=== PATIENT | male | born 1970 | race Caucasian/White ===

== ENCOUNTER 2021-01-20 17:21 | Emergency (ER) | payer OTHER, SELFPAY ==
--- NOTE | ~2021-01-20 | CT_ITS ---
EXAMINATION:CT diagnostic chest wo con DATE: 01/20/2021 18:36 INDICATION: Cough. Fever. COVID-19 pneumonia. TECHNIQUE: Computed tomography (CT) of the chest was performed without intravenous contrast. Automate d exposure control and iterative reconstruction technique were employed. The dose-length product (DLP ) was 724.26 mGy-cm. COMPARISON: None. FINDINGS: There are patchy groundglass and airspace opacities in the lower lobes, consistent with pne umonia. There is mild atelectasis in right middle lobe. A calcified left lung nodule and calcified le ft hilar lymph nodes are consistent with old granulomatous disease. No pleural effusion. The heart si ze is normal. There are coronary artery calcifications. No pericardial effusion. There is diffuse hep atic steatosis. There are 4 stones in left kidney measuring up to 2 mm. There is mild thoracic spondy losis. IMPRESSION: 1. Bilateral lower lobe pneumonia. Reviewed, dictated and finalized at location A.
[2021-01-20 17:28] VITALS: BP 174/116; PULSE 111; RESP 19; TEMP 37.1; O2SAT 95
--- NOTE | 2021-01-20 18:00 | ECG_ITS ---
Measurements Intervals [place] Rate: 112 P: 14 ID: [id number] QRS: -6 QRSD: 90 T: 170 QT: 333 QTc: 455 Interpretive Statements SINUS TACHYCARDIA LEFT VENTRICULAR HYPERTROPHY AND ST-T CHANGE ST-T WAVE ABNORMALITY IN ANTEROLAT/HIGH LAT LEADS- CONSIDER ISCHEMIA BASELINE ARTIFACT- II, III, AVF, V3 ABNORMAL ECG Electronically Signed On 01-23-2021 8:15:48 CDT by Nando Hughes D.O.
--- NOTE | 2021-01-20 18:15 | ED.URI ---
HPI - URI/Sore Throat General Chief Complaint: Upper Respiratory Infection Stated Complaint: low grade fever, congestion Time Seen by Provider: 01/20/21 17:23 Source: patient and RN notes reviewed Mode of arrival: ambulatory Limitations: no limitations History of Present Illness MD elicited complaint: fever, nasal congestion and other (chest congestion and occasional wheezes.) Onset (ago): day(s) (3) Consistency: constant Severity: moderate Pain scale (0-10): 0 Able to tolerate fluids by mouth: Yes Associated symptoms: nasal congestion and shortness of breath Related Data Home Medications Medication Instructions Recorded Confirmed amlodipine 10 mg PO DAILY 01/20/21 01/20/21 lisinopril 10 mg PO HS 01/20/21 01/20/21 metoprolol tartrate 50 mg PO Q12H 01/20/21 01/20/21 Allergies Allergy/AdvReac Type Severity Reaction Status Date / Time No Known Allergies Allergy Verified 01/20/21 17:44 Review of Systems Review of Systems: All systems reviewed & are unremarkable except as noted in HPI and below Respiratory: Respiratory: Reports cough, Reports dyspnea and Reports wheezing Gastrointestinal: Gastrointestinal: Reports no additional gastrointestinal complaints PMFSH Past Medical History Medical History (Updated 01/20/21 @ 19:47 by Roxy Patino MD) Chest congestion Exam Const: General: no acute distress Nutritional Appearance: well nourished Orientation/consciousness: patient oriented x3 HENMT: Head: normal to inspection Ears: TM's normal bilaterally General nose exam: Normal external nose present and Normal nares present Mouth: Yes lip normal and Yes moist mucous membranes Teeth and gingiva: dentition normal Eyes: Conjunctivae: conjunctivae normal Pupils: Equal, round and reactive pupils present EOM: EOMs intact bilaterally Neck: Neck: normal visual inspection and no lymphadenopathy Resp: Effort & Inspection: normal respiratory effort and uses accessory muscles Auscultation: rhonchi Cardio: Rate: tachycardic GI: GI Palp: Yes Soft to palpation Percussion: Yes normal to percussion Auscultation: normal bowel sounds : General: Yes no CVA tenderness Back/Spine/Pelvis: Back: no CVA tenderness Skin: General skin exam: normal color Rashes: no rashes Neuro: General: patient oriented x3, moves all extremities, no meningeal signs, no focal motor deficits and CN's II-XI intact bilaterally Extrem: General: no pedal edema Psych: Appearance: grossly normal and well kempt Mental Status: mental status grossly normal Affect: normal affect Thought content: Yes Normal thought content present Course Course Emergency Course: pt was mildly dyspneic in the ED. Pt wanted to go home and will return if his sxs worsens. Reevaluation(s) Reevaluation #1: pt was stable and responding well to tx. Date: 01/20/21 Time: 18:30 Vital Signs Vital signs: Vital Signs Temperature 37.1 C 01/20/21 17:28 Pulse Rate 111 H 01/20/21 17:28 Respiratory Rate 19 01/20/21 17:28 Blood Pressure 174/116 H 01/20/21 17:28 Pulse Oximetry 95 01/20/21 17:28 Temperature 37.1 C 01/20/21 17:28 Pulse Rate 101 H 01/20/21 19:35 Respiratory Rate 19 01/20/21 17:28 Blood Pressure 174/116 H 01/20/21 17:28 Pulse Oximetry 95 01/20/21 17:28 MDM - URI/Sore Throat Differential Diagnosis Differential diagnosis: Likely upper respiratory infection, viral infection and bronchitis Medical Records Attestation: I reviewed the patient's medical records. Lab Data Attestation: I reviewed the patient's lab results. Result diagrams: 01/20/21 18:07 01/20/21 18:07 Labs: Lab Results 01/20/21 01/20/21 01/20/21 Range/Units 17:39 18:07 18:07 WBC 7.6 (4.8-10.8) K/mm3 RBC 5.76 (4.70-6.10) M/mm3 Hgb 16.4 (14.0-18.0) g/dL Hct 51.0 (40.0-54.0) % MCV 88.5 (78.0-102.0) fL MCH 28.5 (27.0-31.0) pg MCHC 32.2 (32.0-36.0) g/dL RDW 14.6 H (11.6-14.4) % P
[2021-01-20 18:27] LABS: Influenza A QL RT-PCR Negative (Negative); Influenza B QL RT-PCR Negative (Negative); SARS-CoV-2 RNA PCR Positive (Negative)
[2021-01-20 18:46] VITALS: PULSE 111
[2021-01-20] MEDS: METOPROLOL TARTRATE INJ 5 MG/5 ML VIAL IV PUSH ×2 (18:46→19:35)
[2021-01-20] MEDS: SODIUM CHLORIDE 0.9% IV 500 ML 999 ML IV CONT (18:46)
[2021-01-20] MEDS: methylPREDNISolone SOD SUCC 125 MG VIAL IV PUSH (18:47)
[2021-01-20] MEDS: ALBUTEROL SULFATE (*SP) INHALER 2 PUFF INHALATION (18:47)
[2021-01-20 18:49] LABS: Base Excess ABG 0.5 mmol/L (0-2); HCO3 ABG 23.9 mmol/L (23-29); Oxygen Saturation ABG 93.5 % (95-97); Oxyhemoglobin 92.3 % (94-100); PCO2 ABG 35.2 mmHg (35-45); PO2 ABG 66.4 mmHg (80-90); Total Hemoglobin 16.2 g/dL (12.0-18.0); pH ABG 7.45 (7.35-7.45)
[2021-01-20 18:51] LABS: Device ROOM AIR; Modified Allen's Test Pass; Site Drawn LEFT RADIAL
[2021-01-20 18:52] LABS: Basophils Absolute Auto 0.02 K/mm3 (0.00-0.10); Basophils Percent Auto 0.3 % (0.0-1.0); Eosinophils Absolute Auto 0.07 K/mm3 (0.02-0.50); Eosinophils Percent Auto 0.9 % (1.0-6.0); Hemoglobin 16.4 g/dL (14.0-18.0); Immature Granulocyte Absolute 0.03 K/mm3 (0.00-0.00); Immature Granulocyte Percent A 0.4 % (0.0-0.0); Lymphocytes Absolute Auto 1.42 K/mm3 (1.10-4.50); Lymphocytes Percent Auto 18.7 % (18.0-42.0); Mean Corpuscular HGB Conc 32.2 g/dL (32.0-36.0); Mean Corpuscular Hemoglobin 28.5 pg (27.0-31.0); Mean Corpuscular Volume 88.5 fL (78.0-102.0); Mean Platelet Volume 10.3 fl (8.7-11.0); Monocytes Percent Auto 10.6 % (2.0-11.0); Neutrophils Absolute Auto 5.2 K/mm3 (1.7-7.2); Neutrophils Percent Auto 69.1 % (50.0-70.0); Platelet Count Result 226 K/mm3 (150-420); Red Blood Count 5.76 M/mm3 (4.70-6.10); Red Cell Distribution Width 14.6 % (11.6-14.4); White Blood Count 7.6 K/mm3 (4.8-10.8)
--- NOTE | 2021-01-20 18:56 | PC.NURSE ---
REPORT PROVIDED TO JAVIER ADDISON
[2021-01-20 19:00] VITALS: BP 174/119; PULSE 100
[2021-01-20 19:14] LABS: Alanine Aminotransferase 87 U/L (16-63); Albumin Level 3.9 g/dL (3.4-5.0); Alkaline Phosphatase 63 U/L (46-116); Anion Gap 9 mmol/L (8-16); Aspartate Amino Transferase 61 U/L (15-37); Bilirubin,Total 0.4 mg/dL (0.00-1.00); Blood Urea Nitrogen 14 mg/dL (7-18); Carbon Dioxide 31 mmol/L (21-32); Chloride 100 mmol/L (98-108); Estimated CRCL calculation 75 ml/min; Estimated Glomerular Filt Rate 57; Glucose 94 mg/dL (70-99); NT Pro B Type Natriuretic Pept 581 pg/mL (0-125); Osmolality Calculated 290 mOsm/kg (285-295); Sodium 140 mmol/L (136-145); Total Protein 8.5 g/dL (6.4-8.2)
[2021-01-20] MEDS: ACETAMINOPHEN 325 MG TABLET 650 MG PO (19:18)
[2021-01-20 19:25] LABS: Potassium 4.2 mmol/L (3.5-5.1)
[2021-01-20 19:35] VITALS: PULSE 101
[2021-01-20] MEDS: AZITHROMYCIN 250 MG TABLET 500 MG PO (19:40)
[2021-01-20 19:52] VITALS: BP 152/105; PULSE 99
[2021-01-20 20:10] VITALS: BP 157/107; PULSE 97; RESP 20; O2SAT 96
== END 2021-01-20 20:19 | disposition home or self-care (01) ==
PROVIDERS: Emergency Provider Emergency Medicine
DX: U07.1 COVID-19 (principal); J12.82 Pneumonia due to coronavirus disease 2019; R06.00 Dyspnea, unspecified
CPT/HCPCS: 36415; 36600; 71250; 80053; 82805; 83880; 85025; 87040; 87502; 93005; 96374; 96375; 96376; 99283; 99284; A9270; C9803; J0696; J2930; J7040; U0003; U0005

== ENCOUNTER 2021-02-14 13:35 | Emergency (ER) | payer OTHER, SELFPAY ==
--- NOTE | ~2021-02-14 | XR_ITS ---
EXAMINATION: XR elbow RT min 3V EXAM DATE: 02/14/2021 13:57 INDICATION: rt posterior elbow pain today etiology unknown. TECHNIQUE: Right elbow frontal, lateral with flexion, and oblique projections obtained and reviewed. There is no prior study for comparison. FINDINGS: Right elbow anterior humeral line intact. There are no acute fractures or dislocations wilma ntified. There is no subcutaneous gas. There is large amount of right elbow joint fluid. This is mo st commonly sterile effusion. Possible underlying etiologies include reactive from arthritis, overuse , or trauma. Hemarthrosis and septic effusion are not radiographically excludable. Please clinicall y correlate. There is also subcutaneous edema identified along the posterior aspect of the elbow. Th ere are small well-corticated ossifications, sequela from prior injuries. There are no radiopaque fo reign bodies. IMPRESSION: 1. Right elbow exam without acute osseous findings. 2. Large amount of joint fluid. Clinical correlation. Reviewed, dictated and finalized at location A.
[2021-02-14 13:43] VITALS: BP 229/134; PULSE 105; RESP 16; TEMP 36.3; O2SAT 97
[2021-02-14] MEDS: cloNIDine HCL 0.1 MG TABLET PO (13:56)
[2021-02-14] MEDS: ACETAMINOPHEN 500 MG TABLET 1000 MG PO (14:04)
--- NOTE | 2021-02-14 14:29 | ED.EXTPRO ---
HPI - Extremity Problem General Chief complaint: Extremity Problem,Nontraumatic Stated complaint: right elbow pain Time Seen by Provider: 02/14/21 14:12 Source: patient and RN notes reviewed Limitations: no limitations History of Present Illness HPI Narrative: The patient, who is right-handed truck mechanic, presents with right elbow pain. Patient states he has shorter 1 day history of right elbow swelling without redness; symptoms are mild, worse with activity, worse olecranon. No direct injury, redness, fever, warmth, discharge; and he has skin eruption mostly on the opposite forearm consistent with contact dermatitis. Vital signs remarkable for afebrile with high stage elevated BP; he'snot take his medicines over the weekend he reports. Related Data Home Medications Medication Instructions Recorded Confirmed lisinopril 10 mg PO HS 01/20/21 02/14/21 metoprolol tartrate 50 mg PO Q12H 01/20/21 02/14/21 Allergies Allergy/AdvReac Type Severity Reaction Status Date / Time No Known Allergies Allergy Verified 02/14/21 13:37 Review of Systems Review of Systems: General/Constitutional: No weight loss,fever Eyes: N0: Redness,discharge Ears/Nose/Throat: No: Epistaxis,ear discharge Respiratory: Denies: Hemoptysis Gastrointestinal: No Vomiting, Bleeding-rectal Skin: No Lumps, eruption Neurologic: No Focal Weakness,Sz Hematologic: Denies: Petechiae/Purpura Psychiatric: No: Suicida ideationl All Other Systems: Reviewed and Negative [facility] Past Medical History Medical History (Updated 02/14/21 @ 14:36 by Damian Boone MD) Chest congestion Comments At time of signature, agree with nursing past medical, surgical, social and family history. There is no relevant family history pertinent to the presenting complaint Exam Narrative: General Appearance: Well appearing, Conjunctiva clear Ears: External ear normal, Auditory canal normal Nose: Normal nose, Nares clear Mouth/Throat: Normal appearing, Normal lips Neck: Supple Respiratory: Airway patent, No respiratory distress MS-elbow: Nl strength (mostly intact, limited flexion/extension by pain), Tenderness (olecranon, with mild decreased ROM), Swelling (mild, diffuse), Other (no anterior drawer, no collateral laxity, no pain on axial joint compression, no warmth Skin: Warm, Dry, Normal color, with well-healing contact dermatitis left>> right forearm Neurological: A&O x3, Normal affect Course Vital Signs Vital signs: Vital Signs Temperature 97.3 F L 02/14/21 13:43 Pulse Rate 105 H 02/14/21 13:43 Respiratory Rate 16 02/14/21 13:43 Blood Pressure 229/134 H 02/14/21 13:43 Pulse Oximetry 97 02/14/21 13:43 Temperature 97.3 F L 02/14/21 13:43 Pulse Rate 105 H 02/14/21 13:43 Respiratory Rate 16 02/14/21 13:43 Blood Pressure 184/112 H 02/14/21 14:45 Pulse Oximetry 97 02/14/21 13:43 Discharge Plan Discharge Clinical Impression: Olecranon bursitis, right elbow Patient Disposition: Home, Self-Care Condition: Stable Instructions: Antibiotic Form Additional Instructions: Do not take prescription pain meds the same time, nor operate machinery/ drive See PMD follow-up especially if no improvement; ensure you take your blood pressure medications Prescriptions: New acetaminophen-codeine 300-30 mg tablet 1 - 1.5 tablet PO HS PRN (Reason: pain) Qty: 14 RF: 0 prednisone 20 mg tablet 80 mg PO DAILY Qty: 12 RF: 0 tramadol 50 mg tablet 50 - 75 mg PO BID PRN (Reason: pain) Qty: 30 RF: 0 No Action lisinopril 10 mg Tablet 10 mg PO HS RF: 0 metoprolol tartrate 50 mg Tablet 50 mg PO Q12H RF: 0 albuterol sulfate 90 mcg/actuation HFA aerosol inhaler 2 puff inhalation Q4H Qty: 8.5 RF: 0 omeprazole magnesium [Prilosec OTC] 20 mg tablet,delayed release (DR/EC) 20 mg PO BID Qty: 20 RF: 0 amlodipine 10 mg tablet 10 mg PO DAILY Qty: 30 RF: 0 Follow-up/Referrals: UNKNOWN,DOCTO
[2021-02-14 14:30] VITALS: BP 179/124
[2021-02-14 14:45] VITALS: BP 184/112
== END 2021-02-14 14:47 | disposition home or self-care (01) ==
PROVIDERS: Emergency Provider Emergency Medicine
DX: M70.21 Olecranon bursitis, right elbow (principal); I10 Essential (primary) hypertension; Z86.16 Personal history of COVID-19
CPT/HCPCS: 73080; 99213; A9270; G0463

== ENCOUNTER 2021-07-10 08:43 | Emergency (ER) | payer OTHER, SELFPAY ==
--- NOTE | ~2021-07-10 | CT_ITS ---
EXAMINATION: CT abdomen pelvis wo con DATE: 07/10/2021 09:48 INDICATION: Urolithiasis presenting with dysuria, hematuria and left flank pain. TECHNIQUE: Computed tomography (CT) of the abdomen and pelvis was performed without intravenous contr ast. Automated exposure control and iterative reconstruction technique were employed. The dose-length product was 743.10 mGy-cm. COMPARISON: None FINDINGS: Small calcified nodule in the left lower lobe consistent with old granulomatous disease. Heart size i s normal. Aortic valve calcific location. No pericardial or pleural effusion. Diffuse hepatic steatos is with focal sparing along the gallbladder fossa. Gallbladder, spleen, pancreas and bilateral adrena l glands are normal. Bilateral nephrolithiasis, the largest stones measuring 4 mm at a lower pole ag yx of the left kidney and 2 mm at a lower pole calyx of the right kidney. There is a 1-2 mm stone at the proximal left ureter with mild left hydronephrosis. No other ureteral stones. Bladder is normal. There is mild colonic diverticulosis with a sigmoid predominance. There is no adjacent inflammatory c hange to suggest diverticulitis. No bowel obstruction. Bilateral small fat-containing inguinal hernia s. No free intraperitoneal gas or fluid. No pathologically enlarged abdominal or pelvic lymphadenopat hy. Chronic appearing mild likely physiologic anterior wedging at T12. Mild bilateral hip osteoarthri tis. IMPRESSION: 1. Bilateral nephrolithiasis with 102 moderate proximal left ureteral stone with mild left hydronephr osis. Reviewed, dictated and finalized at location A. IMPRESSION: 1. Bilateral nephrolithiasis with 102 moderate proximal left ureteral stone wit h mild left hydronephrosis.
[2021-07-10 08:41] VITALS: BP 205/152; PULSE 112; RESP 20; TEMP 36.6; O2SAT 97
--- NOTE | 2021-07-10 08:51 | ECG_ITS ---
Measurements Intervals [place] Rate: 110 P: 76 [place]: 168 QRS: 11 QRSD: 93 T: 176 QT: 333 QTc: 451 Interpretive Statements SINUS TACHYCARDIA POSSIBLE LEFT ATRIAL ENLARGEMENT [-0.1mV P WAVE IN V1/V2] LEFT VENTRICULAR HYPERTROPHY AND ST-T CHANGE [VOLTAGE CRITERIA PLUS ST/T ABNORMALITY] CONSIDER MYOCARDIAL ISCHEMIA ABNORMAL ECG COMPARED TO ECG 01/20/2021 18:22:40 NO SIGNIFICANT CHANGES Electronically Signed On 07-10-2021 12:22:04 CDT by Felice Kaiser M.D.
[2021-07-10] MEDS: HYDROmorphone HCL INJ (*CRX) 1 MG/ML SYR IV PUSH ×2 (08:52→10:06)
[2021-07-10] MEDS: ONDANSETRON INJ 4 MG/2 ML VIAL IV PUSH (08:52)
--- NOTE | 2021-07-10 08:58 | ED.ABDPAIN ---
HPI - Abdominal Pain General Chief Complaint: Abdominal Pain Stated Complaint: Flank Pain Time Seen by Provider: 07/10/21 08:48 Source: patient History of Present Illness HPI narrative: 50-year-old male with significant history of nephrolithiasis presents to the emergency department for evaluation of acute onset of left lower back pain. Patient states when he woke up at 3 AM he noticed he did have some hematuria. Patient states at 7 AM he had onset of left lower back pain. Patient denies any chest pain or shortness of breath. Pain is localized to his left lower back. Patient does have history of hypertension and does take metoprolol and amlodipine in the morning. Patient did not take his medications this morning due to the pain. Upon arrival patient was hypertensive with a blood pressure 215/150. Related Data Home Medications Medication Instructions Recorded Confirmed lisinopril 10 mg PO HS 01/20/21 02/14/21 metoprolol tartrate 50 mg PO Q12H 01/20/21 02/14/21 Allergies Allergy/AdvReac Type Severity Reaction Status Date / Time No Known Allergies Allergy Verified 07/10/21 08:45 Review of Systems Review of Systems: CONSTITUTIONAL: Denies fever, chills, or sweats. EYES: Denies visual changes, redness, or discharge. ENT: Denies rhinorrhea, congestion, sore throat, or otalgia. CARDIOVASCULAR: Denies chest pain, palpitations, or edema. RESPIRATORY: Denies cough or dyspnea. GASTROINTESTINAL: Left flank pain and lower back pain GENITOURINARY: Hematuria SKIN: Denies rash or itching. MUSCULOSKELETAL: Denies back pain, joint pain, or myalgia. NEUROLOGIC: Denies headache, numbness, or weakness. [facility] Past Medical History Medical History (Updated 07/10/21 @ 11:07 by Troy Alvarez MD) Chest congestion Exam Narrative: APPEARANCE: Distress secondary to flank pain HEAD: normocephalic, atraumatic. EYES: PERRLA/EOMI, conjunctivae clear. NOSE: Normal no drainage NECK: Supple. No adenopathy, no masses. RESPIRATORY: Airway patent, respirations nonlabored. Clear to auscultation bilaterally, no rales, rhonchi, wheezing. CARDIOVASCULAR: Regular rate and rhythm without murmurs rubs or gallops. ABDOMINAL: Soft, nontender, nondistended, normal bowel sounds. Left CVA tenderness to palpation MUSCULOSKELETAL: Moves all extremities. Strength/ROM intact, No edema, No calf tenderness. NEURO: Alert. Cranial nerves II through XII intact. Grossly intact SKIN: Warm, dry. Normal Color Course Course Emergency Course: In addition to pain control patient was also given his morning metoprolol and amlodipine. Patient was given his home BP meds. Patient declined any additional blood pressure treatment. Patient denies any CP or SOB. Patient has multiple elevated BPs on file with diatolic BP over 100. EKG showed sinus tachycardia with left atrial enlargement. Similar ST changes to previous. Vital Signs Vital signs: Vital Signs Temperature 97.8 F 07/10/21 08:41 Pulse Rate 112 H 07/10/21 08:41 Respiratory Rate 20 07/10/21 08:41 Blood Pressure 205/152 H 07/10/21 08:41 Pulse Oximetry 97 07/10/21 08:41 Temperature 97.8 F 07/10/21 08:41 Pulse Rate 88 07/10/21 11:08 Respiratory Rate 15 07/10/21 11:08 Blood Pressure 185/123 H 07/10/21 11:08 Pulse Oximetry 94 07/10/21 11:08 MDM - Abdominal Pain Differential Diagnosis Differential diagnosis: Likely calculus of kidney and diverticulitis Medical Records Attestation: I reviewed the patient's medical records. Medical records narrative: Reviewed previous EKGs and vitals Lab Data Attestation: I reviewed the patient's lab results. Result diagrams: 07/10/21 08:51 07/10/21 08:51 Labs: Lab Results 07/10/21 07/10/21 07/10/21 Range/Units 08:51 08:51 10:07 WBC 6.9 (4.5-10.0) K/mm3 RBC 5.47 (4.6-6.20) M/mm3 Hgb 15.8 (14.0-18.0) g/dL Hct 48.5 (42.0-52.0) % MCV 88.7 (80-100) fl MCH 28.9 (26-34) pg MCHC
[2021-07-10 09:00] LABS: Basophils Absolute Auto 0.1 K/mm3 (0.0-0.1); Basophils Percent Auto 0.7 % (0.2-1.2); Eosinophils Absolute Auto 0.3 K/mm3 (0-0.3); Eosinophils Percent Auto 4.5 % (0-4.4); Hematocrit 48.5 % (42.0-52.0); Hemoglobin 15.8 g/dL (14.0-18.0); Immature Granulocyte Absolute 0.01 K/mm3 (0.00-0.031); Immature Granulocyte Percent A 0.1 % (0-0.5); Lymphocytes Absolute Auto 1.85 K/mm3 (0.9-3.2); Mean Corpuscular HGB Conc 32.6 g/dl (32-36); Mean Corpuscular Hemoglobin 28.9 pg (26-34); Mean Corpuscular Volume 88.7 fl (80-100); Mean Platelet Volume 9.6 fl (7.4-10.4); Monocytes Absolute Auto 0.7 K/mm3 (0.1-0.6); Monocytes Percent Auto 10.3 % (2.6-8.5); Neutrophils Absolute Auto 3.9 K/mm3 (1.3-6.7); Neutrophils Percent Auto 57.4 % (45.5-73.1); Platelet Count Result 249 k/mm3 (150-375); Red Blood Count 5.47 M/mm3 (4.6-6.20); Red Cell Distribution Width 14.3 % (11.5-14.5); White Blood Count 6.9 K/mm3 (4.5-10.0)
[2021-07-10 09:10] LABS: Alanine Aminotransferase 44 U/L (4-50); Albumin Level 4.9 g/dL (3.5-5.1); Alkaline Phosphatase 75 U/L (38-126); Anion Gap 7 mmol/L (8-16); Aspartate Amino Transferase 51 U/L (17-59); Bilirubin,Total 0.6 mg/dL (0.2-1.3); Blood Urea Nitrogen 17 mg/dL (9-20); Calcium 9.3 mg/dL (8.4-10.2); Carbon Dioxide 29 mmol/L (22-30); Chloride 102 mmol/L (98-107); Estimated CRCL calculation 90 ml/min; Estimated Glomerular Filt Rate > 60; Glucose 116 mg/dL (65-110); Sodium 138 mmol/L (137-145)
[2021-07-10 09:30] VITALS: PULSE 110
[2021-07-10] MEDS: amLODIPine BESYLATE 5 MG TABLET 10 MG PO (09:30)
[2021-07-10] MEDS: METOPROLOL TARTRATE 50 MG TAB PO (09:30)
[2021-07-10 10:18] LABS: Add Urine Microscopic? YES; Appearance Urine Cloudy (Clear); Bilirubin Urine Negative (Negative); Blood Urine 3+ (Negative); Color Urine Yellow (Yellow); Glucose Urine UA Negative (Negative); Ketones Urine Negative (Negative); Leukocyte Esterase Ur Negative LEU/UL (Negative); Mucus Urine Rare /lpf; Nitrate Urine Negative (Negative); Protein Urine 1+ mg/dL (Negative); RBC Urine >75 /hpf (0-2); Specific Grav Ur 1.018 (1.001-1.035); Urobilinogen Urine Negative mg/dL (<2.0); WBC Urine 31-50 /hpf
[2021-07-10] MEDS: KETOROLAC 15 MG/ML VIAL (*BKC) IV PUSH (10:37)
[2021-07-10] MEDS: TAMSULOSIN HCL 0.4 MG CAPSULE PO (11:07)
[2021-07-10 11:08] VITALS: BP 185/123; PULSE 88; RESP 15; O2SAT 94
--- NOTE | 2021-07-10 11:13 | PC.NURSE ---
patient's blood pressure elevated, states that he has more blood pressure medications to take at home and he is going straight home to take them. Dr. Alvarez aware
== END 2021-07-10 11:27 | disposition home or self-care (01) ==
PROVIDERS: Emergency Provider Emergency Medicine
DX: N13.2 Hydronephrosis with renal and ureteral calculous obstruction (principal); I10 Essential (primary) hypertension; R00.0 Tachycardia, unspecified; R94.31 Abnormal electrocardiogram [ECG] [EKG]; I51.7 Cardiomegaly
CPT/HCPCS: 36415; 74176; 80053; 81001; 85025; 87086; 87088; 93005; 96374; 96375; 96376; 99284; A9270; J1170; J1885; J2405